=== PATIENT | male | born 1965 | race Two or more races ===

== ENCOUNTER 2017-12-13 22:22 | Emergency (ER) | payer SELFPAY, BC ==
[2017-12-14] MEDS: ONDANSETRON 4 MG INJ IV (01:28)
[2017-12-14] MEDS: SOD CHLORIDE 0.9% 1,000 ML IV (01:28)
[2017-12-14] MEDS: morphine 4 MG/ML VIAL IV ×2 (01:28→03:31)
[2017-12-14 02:32] LABS: ADD MAN DIFF? NO
[2017-12-14 02:35] LABS: BASOPHIL # 0.1 10^3/ul (0.0-0.1); BASOPHILS % 0.5 % (0.0-2.0); EOSINOPHILS % 0.3 % (0.0-7.0); HEMATOCRIT 45.9 % (42.0-52.0); HEMOGLOBIN 15.7 g/dl (14.0-18.0); LYMPHOCYTES # 2.3 10^3/ul (0.8-2.9); MEAN CORPUSCULAR HEMOGLOBIN 30.9 pg (29.0-33.0); MEAN CORPUSCULAR HGB CONC 34.2 g/dl (32.0-37.0); MEAN CORPUSCULAR VOLUME 90.4 fl (82.0-101.0); MEAN PLATELET VOLUME 11.2 fl (7.4-10.4); MONOCYTE # 0.6 10^3/ul (0.3-0.9); MONOCYTES % 4.3 % (0.0-11.0); NEUTROPHIL # 10.6 10^3/ul (1.6-7.5); NEUTROPHILS % 77.6 % (39.0-77.0); PLATELET COUNT 279 10^3/UL (140-415); RED BLOOD COUNT 5.08 10^6/ul (4.70-6.10); RED CELL DISTRIBUTION WIDTH 12.5 % (11.5-14.5)
[2017-12-14 02:35] LABS: WHITE BLOOD COUNT 13.6 10^3/ul (4.8-10.8)
[2017-12-14 02:59] LABS: ALANINE AMINOTRANSFERASE 45 IU/L (13-69); ALBUMIN 4.4 g/dl (3.3-4.9); ALBUMIN/GLOBULIN RATIO 1.15; ALKALINE PHOSPHATASE 67 IU/L (42-121); ANION GAP 18 (8-16); ASPARTATE AMINO TRANSFERASE 24 IU/L (15-46); BILIRUBIN,INDIRECT 0.3 mg/dl (0-1.1); BILIRUBIN,TOTAL 0.3 mg/dl (0.2-1.3); BLOOD UREA NITROGEN 22 mg/dl (7-20); CALCIUM 9.7 mg/dl (8.4-10.2); CARBON DIOXIDE 28 mmol/L (21-31); CHLORIDE 104 mmol/L (97-110); CREATININE 1.08 mg/dl (0.61-1.24); GLUCOSE 152 mg/dl (70-220); LIPASE 143 U/L (23-300); POTASSIUM 4.1 mmol/L (3.5-5.1); SODIUM 146 mmol/L (135-144); TOTAL PROTEIN 8.2 g/dl (6.1-8.1)
[2017-12-14 04:04] LABS: ADD UMIC YES; UR ASCORBIC ACID NEGATIVE (NEGATIVE); UR BILIRUBIN (Dip) NEGATIVE (NEGATIVE); UR BLOOD (Dip) 2+ mg/dL (NEGATIVE); UR CLARITY CLEAR (CLEAR); UR COLOR YELLOW (YELLOW); UR GLUCOSE (Dip) NEGATIVE (NEGATIVE); UR KETONES (Dip) TRACE mg/dL (NEGATIVE); UR LEUKOCYTE ESTERASE (Dip) NEGATIVE Leu/ul (NEGATIVE); UR MUCUS FEW /HPF (NONE SEEN); UR NITRITE (Dip) NEGATIVE (NEGATIVE); UR RBC 6 /HPF (0-5); UR SPECIFIC GRAVITY (Dip) 1.029 (1.003-1.030); UR TOTAL PROTEIN (Dip) 2+ mg/dl (NEGATIVE); UR UROBILINOGEN (Dip) NEGATIVE (NEGATIVE); UR WBC 4 /HPF (0-5)
[2017-12-14] MEDS ORDERED: HYDROmorphONE 0.5 MG/0.5 ML SYG IV (04:09)
[2017-12-14] MEDS ORDERED: ONDANSETRON 4 MG INJ IV (04:09)
[2017-12-14] MEDS: KETOROLAC 15 MG INJ IV (04:34)
== END 2017-12-14 04:45 | disposition home or self-care (01) ==
LOC: E/R 22:22
DX: R10.31 Right lower quadrant pain (principal); F17.210 Nicotine dependence, cigarettes, uncomplicated; R11.10 Vomiting, unspecified
CPT/HCPCS: 36415; 74176; 80053; 81001; 83690; 85025; 96374; 96375; 96376; 99285-25

== ENCOUNTER 2017-12-16 19:25 | Inpatient (IN) | payer MEDICAID ==
[2017-12-16] MEDS: SODIUM CHLORIDE 0.9% 1L BAG IV* (20:51)
[2017-12-16] MEDS: ONDANSETRON 4 MG INJ IV (20:51)
[2017-12-16] MEDS: morphine 4 MG/ML VIAL IV ×2 (20:51→22:31)
[2017-12-16] MEDS: CEFEPIME 2GM/50 ML (PMX) 50 ML IVPB (20:56)
[2017-12-16 21:14] LABS: ADD MAN DIFF? NO
[2017-12-16 21:20] LABS: WHITE BLOOD COUNT 18.5 10^3/ul (4.8-10.8)
[2017-12-16 21:20] LABS: ABNORMAL IP MESSAGE 1; BASOPHILS % 0.2 % (0.0-2.0); EOSINOPHILS % 0.2 % (0.0-7.0); HEMATOCRIT 41.4 % (42.0-52.0); HEMOGLOBIN 14.2 g/dl (14.0-18.0); LYMPHOCYTES # 2.6 10^3/ul (0.8-2.9); LYMPHOCYTES % 14.1 % (15.0-51.0); MEAN CORPUSCULAR HEMOGLOBIN 30.6 pg (29.0-33.0); MEAN CORPUSCULAR HGB CONC 34.3 g/dl (32.0-37.0); MEAN CORPUSCULAR VOLUME 89.2 fl (82.0-101.0); MEAN PLATELET VOLUME 10.9 fl (7.4-10.4); MONOCYTE # 1.9 10^3/ul (0.3-0.9); MONOCYTES % 10.3 % (0.0-11.0); NEUTROPHIL # 13.8 10^3/ul (1.6-7.5); NEUTROPHILS % 74.7 % (39.0-77.0); PLATELET COUNT 198 10^3/UL (140-415); POSITIVE DIFF @See below; RED BLOOD COUNT 4.64 10^6/ul (4.70-6.10); RED CELL DISTRIBUTION WIDTH 12.8 % (11.5-14.5)
[2017-12-16 21:22] LABS: ADD UMIC YES; UR ASCORBIC ACID NEGATIVE (NEGATIVE); UR BILIRUBIN (Dip) NEGATIVE (NEGATIVE); UR BLOOD (Dip) 2+ mg/dL (NEGATIVE); UR CLARITY CLEAR (CLEAR); UR COLOR STRAW (YELLOW); UR GLUCOSE (Dip) NEGATIVE (NEGATIVE); UR KETONES (Dip) NEGATIVE (NEGATIVE); UR LEUKOCYTE ESTERASE (Dip) TRACE Leu/ul (NEGATIVE); UR NITRITE (Dip) NEGATIVE (NEGATIVE); UR RBC 0 /HPF (0-5); UR SPECIFIC GRAVITY (Dip) 1.003 (1.003-1.030); UR TOTAL PROTEIN (Dip) 2+ mg/dl (NEGATIVE); UR UROBILINOGEN (Dip) NEGATIVE (NEGATIVE); UR WBC 1 /HPF (0-5)
[2017-12-16 21:39] LABS: ALANINE AMINOTRANSFERASE 149 IU/L (13-69); ALBUMIN 4.3 g/dl (3.3-4.9); ALBUMIN/GLOBULIN RATIO 1.19; ALKALINE PHOSPHATASE 60 IU/L (42-121); ANION GAP 15 (8-16); ASPARTATE AMINO TRANSFERASE 75 IU/L (15-46); BILIRUBIN,INDIRECT 0.8 mg/dl (0-1.1); BILIRUBIN,TOTAL 0.8 mg/dl (0.2-1.3); BLOOD UREA NITROGEN 15 mg/dl (7-20); CALCIUM 9.3 mg/dl (8.4-10.2); CARBON DIOXIDE 29 mmol/L (21-31); CHLORIDE 100 mmol/L (97-110); CREATININE 1.34 mg/dl (0.61-1.24); GLUCOSE 114 mg/dl (70-220); SODIUM 140 mmol/L (135-144); TOTAL PROTEIN 7.9 g/dl (6.1-8.1)
[2017-12-16 21:40] LABS: INR 1.25; PROTIME 15.9 Sec (11.9-14.9); PT RATIO 1.2
[2017-12-16 21:41] LABS: PARTIAL THROMBOPLASTIN TIME 28.5 Sec (25.0-35.0)
[2017-12-16 22:04] LABS: TROPONIN-I < 0.012 ng/ml (0.00-0.12)
[2017-12-16] MEDS: KETOROLAC 30 MG INJ IV (22:30)
[2017-12-16 22:51] LABS: LACTIC ACID 0.9 mmol/L (0.5-2.0)
[2017-12-17 00:40] LABS: LACTIC ACID 0.8 mmol/L (0.5-2.0)
[2017-12-17] MEDS ORDERED: morphine 2 MG INJ IV (01:30)
[2017-12-17] MEDS ORDERED: NACL 0.9% 3 ML SYG IV (01:30)
[2017-12-17] MEDS ORDERED: ACETAMINOPHEN 325 MG TAB PO (01:30)
[2017-12-17] MEDS: SOD CHLORIDE 0.9% 1,000 ML IV ×4 (01:42→07:54)
[2017-12-17 03:13] LABS: ADD MAN DIFF? NO
[2017-12-17 03:16] LABS: ABNORMAL IP MESSAGE 1; BASOPHILS % 0.3 % (0.0-2.0); EOSINOPHILS # 0.1 10^3/ul (0.0-0.5); EOSINOPHILS % 0.3 % (0.0-7.0); HEMATOCRIT 34.8 % (42.0-52.0); LYMPHOCYTES # 2.4 10^3/ul (0.8-2.9); LYMPHOCYTES % 16.1 % (15.0-51.0); MEAN CORPUSCULAR HEMOGLOBIN 31.1 pg (29.0-33.0); MEAN CORPUSCULAR HGB CONC 34.5 g/dl (32.0-37.0); MEAN CORPUSCULAR VOLUME 90.2 fl (82.0-101.0); MEAN PLATELET VOLUME 11.2 fl (7.4-10.4); MONOCYTE # 1.6 10^3/ul (0.3-0.9); MONOCYTES % 10.2 % (0.0-11.0); NEUTROPHILS % 72.6 % (39.0-77.0); PLATELET COUNT 163 10^3/UL (140-415); POSITIVE DIFF @See below; RED BLOOD COUNT 3.86 10^6/ul (4.70-6.10); RED CELL DISTRIBUTION WIDTH 12.7 % (11.5-14.5)
[2017-12-17 03:16] LABS: WHITE BLOOD COUNT 15.2 10^3/ul (4.8-10.8)
[2017-12-17 03:37] LABS: LACTIC ACID 0.9 mmol/L (0.5-2.0)
[2017-12-17 03:48] LABS: ALANINE AMINOTRANSFERASE 108 IU/L (13-69); ALBUMIN 3.2 g/dl (3.3-4.9); ALBUMIN/GLOBULIN RATIO 1.03; ALKALINE PHOSPHATASE 47 IU/L (42-121); ANION GAP 10 (8-16); ASPARTATE AMINO TRANSFERASE 53 IU/L (15-46); BILIRUBIN,INDIRECT 0.5 mg/dl (0-1.1); BILIRUBIN,TOTAL 0.5 mg/dl (0.2-1.3); BLOOD UREA NITROGEN 18 mg/dl (7-20); CALCIUM 8.1 mg/dl (8.4-10.2); CARBON DIOXIDE 29 mmol/L (21-31); CHLORIDE 106 mmol/L (97-110); CHOLESTEROL 161 mg/dl (100-200); CREATININE 1.47 mg/dl (0.61-1.24); GLUCOSE 159 mg/dl (70-220); HDL CHOLESTEROL 23 mg/dl (28-71); LDL CHOLESTEROL,CALCULATED 98 mg/dl; MAGNESIUM 1.9 mg/dl (1.7-2.5); SODIUM 141 mmol/L (135-144); TOTAL PROTEIN 6.3 g/dl (6.1-8.1); TRIGLYCERIDES 200 mg/dl (0-149)
[2017-12-17] MEDS: ONDANSETRON 4 MG INJ IV (05:09)
[2017-12-17] MEDS: PIPER-TAZO 3.375 GM IV (PMX) 100 ML IVPB ×2 (05:46→12:31)
[2017-12-17] MEDS ORDERED: IODIXANOL LOCM 100 ML BTL (09:19)
[2017-12-17] MEDS ORDERED: SOD CHLORIDE 0.9% 100 ML (09:19)
== END 2017-12-17 14:30 | disposition home or self-care (01) | DRG 699 ==
LOC: MS3 23:04 → PP2 12-17 00:21 → E/R 19:25 → PP2 12-17 05:00
DX: N28.0 Ischemia and infarction of kidney (principal); K57.92 Diverticulitis of intestine, part unspecified, without perforation or abscess without bleeding; N17.9 Acute kidney failure, unspecified; F17.200 Nicotine dependence, unspecified, uncomplicated
CPT/HCPCS: 36415; 74177; 80053; 80061; 81001; 83036; 83605; 83735; 84443; 84484; 85025; 85610; 85730; 87040; 87400; 93005; 96374; 96375; 96376; 99291-25